=== PATIENT | female | born 1965 | race Caucasian/White ===

== ENCOUNTER 2023-12-22 06:07 | Day surgery (SDC) | payer BC, SELFPAY ==
[2023-12-22 06:12] VITALS: BMI 24.1
[2023-12-22 06:20] VITALS: BP 148/94
[2023-12-22] MEDS: TYLENOL 1000 MG PO (06:36)
[2023-12-22] MEDS: NORMOSOL-R 1000 IV (06:36)
[2023-12-22 06:39] VITALS: BMI 24.1
[2023-12-22 08:20] VITALS: BP 112/69
--- NOTE | 2023-12-22 08:32 | W.SUR.PREOP ---
Pre-Operative Surgical Note
-
I have examined this patient prior to the performance of the scheduled procedure.
The patient's condition is unchanged from the time of the current History and
Physical and the patient is able to undergo the scheduled procedure.
--- NOTE | 2023-12-22 08:32 | W.IMMPOSTOP ---
Surgical Immed Post Op Note
-
Primary Surgeon: Richie Jorgensen MD
Assisting Surgeon: None
Pre-op Diagnosis: Recurrent left axillary mass
Post-op Diagnosis: Same
Procedure Performed: Excision of a left axillary mass
Anesthesia Type: General
Specimen / Cultures: Left axillary mass
Estimated Blood Loss: 1 cc
Complications: None
Operative Findings: A roughly 4 x 5 cm unencapsulated lipoma/fatty mass was removed in pieces.
--- NOTE | 2023-12-22 08:33 | OR.RPT ---
Operative Report
Operative Report
Patient Name: Rea Pina
: 1965
Date of Operation: 12/22/2023
Preoperative Diagnosis: Left axillary mass
Postoperative Diagnosis: Same
Procedure(s):
Excision of left axillary mass
Surgeon(s):
Dr. Jorgensen
Erp Pm(s):
KRISTAN Vazquez
Anesthesia: MAC
Estimated Blood Loss: 1 cc
Urine Output: None
Drains/Lines/Implants: None
Specimens:
1. Left axillary mass
Indication for surgery:
This is a 58-year-old female with a recurrent lump in her left axilla that she has known about for several years. She had a previous mass excision in this area which she reported as a lipoma but had recurrence shortly after. After evaluation in
the office he was diagnosed with a lipoma. After discussion of risk benefits and alternatives he elected and was consented for surgery.
Operative Findings: A roughly 4 x 5 cm unencapsulated lipoma/fatty mass was removed in pieces.
Details of the operation:
The patient was brought to the operating room a placed in the supine, beach chair position with the left arm secured above the head. After appropriate sedation by anesthesia, the area of the left axilla was prepped and draped in the usual fashion.
A linear incision over natural skin line was made over the mass and carried down through the subcutaneous tissue. The fatty mass was identified immediately and appeared to be an unencapsulated lipoma with multiple interdigitating extensions. The
mass was carefully dissected off of the surrounding tissues until no residual mass was palpable. The field was irrigated with saline and hemostasis was achieved.
The space was closed in layers with interrupted 3-0 Vicryl and then dressed with Dermabond. All counts were correct at the end of procedure. The patient was then transferred to the PACU for recovery.
I was the attending physician and performed the procedure with assistance from the [employer] above. I was present for all portions of the case
Richie Jorgensen MD
[2023-12-22 08:35] VITALS: BP 109/80
[2023-12-22 08:50] VITALS: BP 123/78
== END 2023-12-22 09:07 | disposition home or self-care (01) ==
LOC: SDS 06:07
PROVIDERS: ATTENDING PHYSICIAN Surgery
DX: D17.22 Benign lipomatous neoplasm of skin and subcutaneous tissue of left arm (principal)
CPT/HCPCS: 11406; 88304

== ENCOUNTER → 2024-02-05 13:51 | Outpatient (REF) | payer BC, SELFPAY | LOC: WDC 13:51 | PROVIDERS: ATTENDING PHYSICIAN Family Medicine | DX: Z12.31 Encounter for screening mammogram for malignant neoplasm of breast (principal) | CPT/HCPCS: 77063; 77067 ==

== ENCOUNTER → 2025-02-08 13:21 | Outpatient (REF) | payer BC, SELFPAY | LOC: WDC 13:21 | PROVIDERS: ATTENDING PHYSICIAN Family Medicine | DX: Z12.31 Encounter for screening mammogram for malignant neoplasm of breast (principal) | CPT/HCPCS: 77063; 77067 ==